=== PATIENT | male | born 1990 | race Caucasian/White ===

== ENCOUNTER 2018-03-18 09:50 | Emergency (ER) | payer OTHER ==
[~2018-03-18] VITALS: Ht 172.7 cm; Wt 61.2 kg
[~2018-03-18 09:50] MED LIST: AMOCLA875 PO; CEPH500 PO; HYDACE5 PO; PROM25 PO; Zofran Odt4 MG SL
[2018-03-18] MEDS ORDERED: HYDHCL25 PO (10:26)
== END 2018-03-18 10:44 | disposition home or self-care (01) ==
LOC: ER 09:50
DX: F41.0 Panic disorder [episodic paroxysmal anxiety] (principal); F43.9 Reaction to severe stress, unspecified; F20.9 Schizophrenia, unspecified; F17.200 Nicotine dependence, unspecified, uncomplicated
CPT/HCPCS: 99282

== ENCOUNTER 2021-05-26 17:31 | Emergency (ER) | payer OTHER ==
[~2021-05-26] VITALS: Ht 175.3 cm; Wt 65.8 kg
[~2021-05-26 17:31] MED LIST changes: +HYDHCL25 PO
[2021-05-26] MEDS ORDERED: Amoxicillin500 MG PO (17:36)
== END 2021-05-26 17:40 | disposition home or self-care (01) ==
LOC: ER 17:31
DX: J02.0 Streptococcal pharyngitis (principal); F20.9 Schizophrenia, unspecified; F17.200 Nicotine dependence, unspecified, uncomplicated; Z79.899 Other long term (current) drug therapy
CPT/HCPCS: 99284

== ENCOUNTER 2022-09-04 20:35 | Emergency (ER) | payer OTHER ==
[~2022-09-04] VITALS: Ht 175.3 cm; Wt 63.5 kg
[~2022-09-04 20:35] MED LIST changes: +Amoxicillin500 MG PO
== END 2022-09-04 23:22 | disposition home or self-care (01) ==
LOC: ER 20:35
DX: F41.9 Anxiety disorder, unspecified (principal); F22 Delusional disorders; F20.9 Schizophrenia, unspecified; F17.210 Nicotine dependence, cigarettes, uncomplicated
CPT/HCPCS: 99283

== ENCOUNTER 2022-09-05 23:56 | Emergency (ER) | payer OTHER ==
[~2022-09-05] VITALS: Ht 172.7 cm; Wt 63.5 kg
[2022-09-06] MEDS ORDERED: QUET25 PO (05:02)
== END 2022-09-06 06:00 | disposition home or self-care (01) ==
LOC: ER 23:56
DX: F41.9 Anxiety disorder, unspecified (principal); F22 Delusional disorders
CPT/HCPCS: 93005; 93010; 99283-25; A9270

== ENCOUNTER 2025-06-22 17:35 | Emergency (ER) | payer OTHER ==
[~2025-06-22] VITALS: Ht 172.7 cm; Wt 65.0 kg
[~2025-06-22 17:35] MED LIST changes: +QUET25 PO
[2025-06-22 17:39] VITALS: BP 133/103
[2025-06-22] MEDS ORDERED: PSEU120ER PO (17:58)
== END 2025-06-22 18:24 | disposition home or self-care (01) ==
LOC: ER 17:35
DX: J01.90 Acute sinusitis, unspecified (principal); F17.200 Nicotine dependence, unspecified, uncomplicated
CPT/HCPCS: 99282

== ENCOUNTER 2025-06-25 17:56 | Emergency (ER) | payer OTHER ==
[~2025-06-25] VITALS: Ht 175.3 cm; Wt 65.8 kg
[~2025-06-25 17:56] MED LIST changes: +PSEU120ER PO
[2025-06-25 18:51] VITALS: BP 141/98
[2025-06-25] MEDS ORDERED: Oxymetazoline 0.05% Nasal Relief Spray 15mL BTL ONE (21:20)
== END 2025-06-25 21:36 | disposition home or self-care (01) ==
LOC: ER 17:56
DX: J01.90 Acute sinusitis, unspecified (principal); F17.200 Nicotine dependence, unspecified, uncomplicated
CPT/HCPCS: 99282; A9270

== ENCOUNTER 2025-07-08 14:29 | Emergency (ER) | payer OTHER ==
[2025-07-08] MEDS ORDERED: FAMO20 PO (19:23)
[2025-07-08] MEDS ORDERED: CYCL10 PO (19:23)
[2025-07-08] MEDS ORDERED: IBU600 M1 PO (19:23)
[2025-07-08] MEDS ORDERED: LIDO700A20 TOP (19:23)
== END 2025-07-08 14:47 | disposition left against medical advice (07) ==
LOC: ER 14:29
DX: M54.50 Low back pain, unspecified (principal); Z53.21 Procedure and treatment not carried out due to patient leaving prior to being seen by health care provider

== ENCOUNTER 2025-07-08 17:04 | Emergency (ER) | payer OTHER ==
[~2025-07-08] VITALS: Ht 182.9 cm; Wt 81.7 kg
[2025-07-08 17:24] VITALS: BP 119/81
[2025-07-08] MEDS ORDERED: Ketorolac Tromethamine 30mg Vial IM ONE (19:20)
[2025-07-08] MEDS ORDERED: IBU600 M1 PO (19:23)
[2025-07-08] MEDS ORDERED: FAMO20 PO (19:23)
[2025-07-08] MEDS ORDERED: CYCL10 PO (19:23)
[2025-07-08] MEDS ORDERED: LIDO700A20 TOP (19:23)
[2025-07-08] MEDS ORDERED: Lidocaine 4% 1 Patch TOP ONE (19:25)
== END 2025-07-08 19:56 | disposition home or self-care (01) ==
LOC: ER 17:04
DX: M54.50 Low back pain, unspecified (principal); F17.200 Nicotine dependence, unspecified, uncomplicated; Z79.899 Other long term (current) drug therapy
CPT/HCPCS: 96372; 99283-25; A9270; J1885